=== PATIENT | male | born 1975 | race Caucasian/White ===

== ENCOUNTER 2024-03-04 15:47 | Emergency (ER) | payer MEDICAID ==
[~2024-03-04] VITALS: Ht 180.3 cm; Wt 67.0 kg
[~2024-03-04 15:47] MED LIST: ALBU18HF2 IH; ALBU18HF2 INH; ALBU6.7H14 INH; ALBU8.5H17 IH; ALBU8HFA PO; AZIT250T PO; BUDE10.2 INH; IBUP-1984 PO; LEVA15HF4 IH
[2024-03-04 16:27] LABS: BASOPHILS # (AUTO) 0.1 X10'3 (0-0.2); BASOPHILS % (AUTO) 0.6 % (0-1); EOSINOPHILS % (AUTO) 0.4 % (0-6); HEMOGLOBIN 15.7 g/dl (14.0-17.9); LYMPHOCYTES # (AUTO) 2.1 X10'3 (1.1-4.8); LYMPHOCYTES % (AUTO) 18.2 % (21-51); MEAN CORPUSCULAR HEMOGLOBIN 29.1 PG (27.0-31.0); MEAN CORPUSCULAR HGB CONC 33.4 g/dL (33.0-36.5); MEAN CORPUSCULAR VOLUME 87.1 FL (78-98); MEAN PLATELET VOLUME 9.8 FL (7.4-10.4); MONOCYTES # (AUTO) 0.9 X10'3 (0-0.9); MONOCYTES % (AUTO) 7.6 % (2-12); NEUTROPHILS # (AUTO) 8.4 X10'3 (1.8-7.7); NEUTROPHILS % (AUTO) 73.2 % (42-75); PLATELET COUNT 268 X10'3 (140-440); RED CELL DISTRIBUTION WIDTH 13.8 % (11.5-14.5); WHITE BLOOD COUNT 11.5 X10'3 (4.5-11.0)
[2024-03-04 16:42] LABS: ALANINE AMINOTRANSFERASE 28 U/L (12-78); ALBUMIN 4.2 G/DL (3.4-5.0); ALKALINE PHOSPHATASE 79 IU/L (46-116); ANION GAP 13 (8-16); ASPARTATE AMINO TRANSFERASE 23 U/L (10-37); BILIRUBIN,TOTAL 0.7 MG/DL (0.1-1.0); BLOOD UREA NITROGEN 38 MG/DL (7-18); BUN/CREATININE RATIO 22.2 (10.0-20.0); CALCIUM 9.4 MG/DL (8.5-10.1); CHLORIDE 98 MMOL/L (99-107); CREATININE 1.71 MG/DL (0.60-1.10); GLUCOSE 114 MG/DL (70-104); LIPASE 55 U/L (16-77); POTASSIUM 3.4 MMOL/L (3.5-5.1); SODIUM 136 MMOL/L (135-145); TOTAL CARBON DIOXIDE 24.7 MMOL/L (24-32); TOTAL PROTEIN 8.6 G/DL (6.4-8.2); eCRCL 49 ML/MIN; eGFR 43 ML/MIN
[2024-03-04] MEDS: ondansetron/PF 4mg/2ml inj IV ONE (18:57)
[2024-03-04 19:22] LABS: FREE T4 (FREE THYROXINE) 0.82 NG/DL (0.73-1.40); THYROID STIMULATING HORMONE 2.59 ulU/ml (0.34-4.50)
[2024-03-04] MEDS: normal saline 1000ml 1,000 ML IV ONE (19:23)
[2024-03-04 21:16] LABS: BILIRUBIN,URINE MODERATE (Neg); CLARITY,URINE CLEAR (Clear); GLUCOSE, URINE NEGATIVE (Neg); KETONES,URINE 15 mg/dl (Neg); LEUKOCYTE ESTERASE ,URINE NEGATIVE (Neg); NITRITES, URINE NEGATIVE (Neg); OCCULT BLOOD,URINE NEGATIVE (Neg); PROTEIN,URINE TRACE mg/dl (Neg); UROBILINOGEN,URINE 0.2 E.U/dL (0.2-1.0)
[2024-03-04 21:22] LABS: COLOR,URINE DARK YELLOW (Yellow); UA COLLECTION TYPE VOIDED
[2024-03-04 21:23] LABS: URINE AMPHETAMINE SCREEN NEGATIVE (Neg); URINE BARBITUATE SCREEN NEGATIVE (Neg); URINE BENZODIAZEPINES SCREEN NEGATIVE (Neg); URINE CANNABINOID SCREEN NEGATIVE (Neg); URINE COCAINE SCREEN NEGATIVE (Neg); URINE METHADONE SCREEN POSITIVE (Neg); URINE OPIATE SCREEN NEGATIVE (Neg); URINE PHENCYCLIDINE SCREEN NEGATIVE (Neg)
[2024-03-04 21:24] LABS: BACTERIA,URINE 1+ /HPF (Neg); MUCUS STRANDS MANY /LPF (Neg); SQUAMOUS EPITHELIAL CELL,UR FEW /LPF (FEW); WBC,URINE 0-4 /HPF (0-4)
[2024-03-04 21:25] LABS: RENAL CELLS, URINE FEW /HPF; TRANSITIONAL EPI CELLS,URINE FEW /HPF
[2024-03-04 21:40] VITALS: BP 110/77; PULSE 77; RESP 16; TEMP 98.4; O2SAT 99
[2024-03-04] MEDS ORDERED: ONDA-245 PO (21:48)
== END 2024-03-04 22:01 | disposition home or self-care (01) ==
LOC: ER 15:48
DX: R11.2 Nausea with vomiting, unspecified (principal); R53.83 Other fatigue; E86.0 Dehydration; J45.909 Unspecified asthma, uncomplicated; Z79.899 Other long term (current) drug therapy; Z79.2 Long term (current) use of antibiotics; Z79.1 Long term (current) use of non-steroidal anti-inflammatories (NSAID)
CPT/HCPCS: 36415; 71045; 74176; 80053; 80305; 81001; 83690; 84439; 84443; 85025; 93005; 96361; 96374; 99285; J2405; J7030